=== PATIENT | male | born 1985 | race Caucasian/White ===

== ENCOUNTER 2017-06-27 20:01 | Emergency (ER) | payer BC ==
[~2017-06-27] VITALS: Ht 185.4 cm; Wt 104.3 kg
[~2017-06-27 20:01] MED LIST: AMOXICILLIN 50500 MG PO; AMOXICILLIN500 M1 PO; AUGMENTIN 875875 M1 PO; BACTRIM DS TAB1 EACH PO; BACTROBAN CREAM30 G1 TOP; CELEXA40 MG PO; CORTISPORIN OTI10 M2 OT; DESYREL100 MG; DOXYCYCLINE 10100 MG PO; LEXAPRO20 MG PO; NORCO 5-325 TA1 EAC1 PO; NORCO 5-325 TA1 EACH PO; PENICILLIN VK500 M1 PO; TRAZODONE HCL100 MG PO; TRILEPTAL150 MG; TRILEPTAL150 MG PO; Trazadone; VICODIN 5-5001 EACH PO; VICOPROFEN 2001 EACH PO
[2017-06-27 20:16] VITALS: BP 130/91
[2017-06-27] MEDS ORDERED: LEXAPRO 10 MG T10 M2 PO ×2 (20:20→20:34)
[2017-06-27] MEDS ORDERED: TRILEPTAL150 MG PO ×4 (20:21→20:46)
[2017-06-27] MEDS ORDERED: TRAZODONE HCL100 MG PO (20:34)
== END 2017-06-27 20:43 | disposition home or self-care (01) ==
LOC: M.ERS 20:01
DX: Z76.0 Encounter for issue of repeat prescription (principal); F31.9 Bipolar disorder, unspecified; F10.99 Alcohol use, unspecified with unspecified alcohol-induced disorder

== ENCOUNTER 2017-10-20 17:18 | Emergency (ER) | payer BC ==
[~2017-10-20] VITALS: Ht 185.4 cm; Wt 104.3 kg
[~2017-10-20 17:18] MED LIST changes: +LEXAPRO 10 MG T10 M2 PO
[2017-10-20] MEDS ORDERED: BACTRIM DS TAB1 EACH PO (18:13)
[2017-10-20] MEDS ORDERED: ACETAMINOPHEN-1 EAC1 PO (18:13)
[2017-10-20] MEDS ORDERED: NORCO 5-325 TA1 EACH PO (18:33)
[2017-10-20] MEDS ORDERED: KEFLEX500 M1 PO (18:33)
[2017-10-20 18:51] VITALS: BP 126/89
== END 2017-10-20 18:52 | disposition home or self-care (01) ==
LOC: M.ERS 17:18
DX: L02.416 Cutaneous abscess of left lower limb (principal); F31.9 Bipolar disorder, unspecified; F17.210 Nicotine dependence, cigarettes, uncomplicated

== ENCOUNTER 2018-01-14 09:02 | Emergency (ER) | payer BC ==
[~2018-01-14] VITALS: Ht 185.4 cm; Wt 77.1 kg
[~2018-01-14 09:02] MED LIST changes: +ACETAMINOPHEN-1 EAC1 PO; +KEFLEX500 M1 PO
[2018-01-14 09:11] VITALS: BP 139/96
[2018-01-14] MEDS ORDERED: BACTRIM DS TAB1 EACH PO (09:48)
== END 2018-01-14 09:54 | disposition home or self-care (01) ==
LOC: M.ERS 09:02
DX: L02.416 Cutaneous abscess of left lower limb (principal); F31.9 Bipolar disorder, unspecified; F17.210 Nicotine dependence, cigarettes, uncomplicated

== ENCOUNTER 2018-02-12 12:41 | Emergency (ER) | payer BC ==
[~2018-02-12] VITALS: Ht 185.4 cm; Wt 79.4 kg
[2018-02-12] MEDS ORDERED: IBUPROFEN 800800 M1 PO (12:50)
[2018-02-12] MEDS ORDERED: ABILIFY 5 MG TAB5 MG PO (12:50)
[2018-02-12] MEDS ORDERED: MEDROLDOSEPACK PO (13:38)
[2018-02-12] MEDS ORDERED: HYDROCODONE-AP1 EAC6 PO (13:38)
[2018-02-12] MEDS ORDERED: NABUMETONE 750750 M1 PO (13:38)
[2018-02-12 13:47] VITALS: BP 127/80
== END 2018-02-12 13:49 | disposition home or self-care (01) ==
LOC: M.ERS 12:41
DX: M75.42 Impingement syndrome of left shoulder (principal); F31.9 Bipolar disorder, unspecified; F17.210 Nicotine dependence, cigarettes, uncomplicated; Z98.890 Other specified postprocedural states

== ENCOUNTER 2018-02-26 20:13 | Emergency (ER) | payer BC ==
[~2018-02-26] VITALS: Ht 185.4 cm; Wt 90.7 kg
[~2018-02-26 20:13] MED LIST changes: +ABILIFY 5 MG TAB5 MG PO; +HYDROCODONE-AP1 EAC6 PO; +IBUPROFEN 800800 M1 PO; +MEDROLDOSEPACK PO; +NABUMETONE 750750 M1 PO
[2018-02-26] MEDS ORDERED: NABUMETONE 750750 M1 PO (21:04)
[2018-02-26] MEDS ORDERED: BACTRIM DS TAB1 EACH PO (21:04)
[2018-02-26] MEDS ORDERED: NORCO 5-325 TA1 EACH PO (21:12)
[2018-02-26 21:42] VITALS: BP 121/88
== END 2018-02-26 21:43 | disposition home or self-care (01) ==
LOC: M.ERS 20:13
DX: L02.31 Cutaneous abscess of buttock (principal); F31.9 Bipolar disorder, unspecified; F17.210 Nicotine dependence, cigarettes, uncomplicated

== ENCOUNTER 2018-06-28 18:34 | Emergency (ER) | payer BC ==
[~2018-06-28] VITALS: Ht 185.4 cm; Wt 81.7 kg
[2018-06-28] MEDS ORDERED: MEDROLDOSEPACK PO (19:03)
[2018-06-28] MEDS ORDERED: TIZANIDINE HCL 22 M1 PO (19:03)
[2018-06-28] MEDS ORDERED: NORCO 5-325 TA1 EACH PO (19:03)
[2018-06-28] MEDS ORDERED: NABUMETONE 750750 M1 PO (19:03)
[2018-06-28 19:13] VITALS: BP 138/74
== END 2018-06-28 19:13 | disposition home or self-care (01) ==
LOC: M.ERS 18:34
DX: S46.812A Strain of other muscles, fascia and tendons at shoulder and upper arm level, left arm, initial encounter (principal); F17.210 Nicotine dependence, cigarettes, uncomplicated; F31.9 Bipolar disorder, unspecified; X50.1XXA Overexertion from prolonged static or awkward postures, initial encounter; Y92.89 Other specified places as the place of occurrence of the external cause; Y93.89 Activity, other specified; Y99.8 Other external cause status

== ENCOUNTER 2018-10-18 20:41 | Emergency (ER) | payer BC ==
[~2018-10-18] VITALS: Ht 185.4 cm; Wt 90.7 kg
[~2018-10-18 20:41] MED LIST changes: +TIZANIDINE HCL 22 M1 PO
[2018-10-18] MEDS ORDERED: DOXYCYCLINE 10100 MG PO (22:20)
[2018-10-18] MEDS ORDERED: HYDROCODON-ACE1 EAC8 PO (22:20)
[2018-10-18 22:30] VITALS: BP 129/88
== END 2018-10-18 22:30 | disposition home or self-care (01) ==
LOC: M.ERS 20:41
DX: L02.415 Cutaneous abscess of right lower limb (principal); F17.210 Nicotine dependence, cigarettes, uncomplicated; F31.9 Bipolar disorder, unspecified

== ENCOUNTER 2020-05-04 18:38 | Emergency (ER) | payer BC ==
[~2020-05-04] VITALS: Ht 185.4 cm; Wt 95.3 kg
[~2020-05-04 18:38] MED LIST changes: +HYDROCODON-ACE1 EAC8 PO
[2020-05-04 19:03] VITALS: BP 145/102
[2020-05-04] MEDS ORDERED: HYDROCODON-ACE1 EAC8 PO (19:17)
[2020-05-04] MEDS ORDERED: DOXYCYCLINE 10100 MG PO (19:17)
== END 2020-05-04 19:30 | disposition home or self-care (01) ==
LOC: M.ERS 18:38
DX: L03.115 Cellulitis of right lower limb (principal); F31.9 Bipolar disorder, unspecified

== ENCOUNTER 2021-05-02 13:55 | Emergency (ER) | payer BC ==
[~2021-05-02] VITALS: Ht 185.4 cm; Wt 90.7 kg
[2021-05-02] MEDS ORDERED: BACTRIM DS TAB1 EACH PO (15:31)
[2021-05-02] MEDS ORDERED: HYDROCODON-ACE1 EAC7 PO (15:31)
[2021-05-02 15:42] VITALS: BP 134/72
== END 2021-05-02 15:42 | disposition home or self-care (01) ==
LOC: M.ERS 13:55
DX: L02.415 Cutaneous abscess of right lower limb (principal); F17.210 Nicotine dependence, cigarettes, uncomplicated